=== PATIENT | female | born 1940 | race Caucasian/White ===

== ENCOUNTER 2017-06-21 20:31 | Emergency (ER) | payer OTHER ==
[~2017-06-21] VITALS: Ht 172.7 cm; Wt 106.5 kg
[~2017-06-21 20:31] MED LIST: ANTIVERT25 MG PO; ASPIRIN325 MG PO; ASPIRIN81 M2 PO; ATENOLOL50 MG PO; COLACE100 MG PO; MESTINON60 MG PO; PERCOCET 5/31 TABLET PO; PREDNISONE10 MG PO; PYRIDOSTIGMINE60 MG PO; VALSARTAN40 MG PO
[2017-06-21 21:53] LABS: HEMATOCRIT 42.2 % (36.0-46.0); HEMOGLOBIN 13.8 G/DL (11.9-15.5); MCH 31.9 PG (29.0-34.0); MCHC 32.7 G/DL (30.0-36.0); MCV 97.7 FL (83-99); PLATELET COUNT 135 K/uL (156-360); RBC DIS.WIDTH-CV 12.8 % (11.8-14.6); RBC DIS.WIDTH-SD 45.9 % (39-53); RED BLOOD COUNT 4.32 M/uL (3.80-5.20); WHITE BLOOD COUNT 4.3 K/uL (4.1-10.2)
[2017-06-21 22:02] LABS: ALBUMIN 3.3 g/dL (3.2-4.8); CHLORIDE 103 mEq/L (99-109); POTASSIUM 3.8 mEq/L (3.7-5.4); SODIUM 138 mEq/L (136-147)
[2017-06-21 22:04] LABS: GLUCOSE 86 mg/dL (70-99); TOTAL PROTEIN 7.7 g/dL (6.4-8.3)
[2017-06-21 22:06] LABS: TOTAL BILIRUBIN 0.4 mg/dL (0.0-1.0)
[2017-06-21 22:08] LABS: ALKALINE PHOSPHATASE 66 IU/L (3-129); GFR ESTIMATE (CALCULATED) 57 mL/min/
[2017-06-21 22:09] LABS: AST (GOT) 32 IU/L (2-34); UREA NITROGEN (BUN) 17 mg/dL (9-23)
[2017-06-21 22:11] LABS: ALT (GPT) 28 IU/L (3-49); LIPASE 39 U/L (1.0-51.0)
[2017-06-21 22:15] LABS: TROP-I INTERPRETATION NEGATIVE; TROPONIN-I 0.02 ng/mL (0.0-0.30)
[2017-06-21 23:43] VITALS: BP 188/81
== END 2017-06-21 23:44 | disposition home or self-care (01) ==
LOC: EME 20:31
PROVIDERS: Emergency Medicine
DX: M25.511 Pain in right shoulder (principal); R05 Cough; I10 Essential (primary) hypertension; G70.00 Myasthenia gravis without (acute) exacerbation; Z79.52 Long term (current) use of systemic steroids; Z79.82 Long term (current) use of aspirin
CPT/HCPCS: 71275; 80053; 83690; 84484; 85027; 93005; 99281; 99285